=== PATIENT | female | born 1960 | race Caucasian/White ===

== ENCOUNTER 2017-04-20 22:02 | Emergency (ER) | payer OTHER ==
[~2017-04-20] VITALS: Ht 172.7 cm; Wt 104.3 kg
[2017-04-20] MEDS ORDERED: LEVOTHYROXINE150 MCG ORAL (22:13)
[2017-04-20] MEDS ORDERED: BP MEDS (22:14)
[2017-04-20] MEDS ORDERED: Dexamethasone 4mg/ml vial IVP ONE (22:30)
[2017-04-20] MEDS ORDERED: HYDROmorphone 1mg/ml Carpuject IVP ONE (22:30)
[2017-04-21] MEDS ORDERED: HYDROmorphone 1mg/ml Carpuject IVP ONE (00:30)
--- NOTE | 2017-04-21 00:34 | Emergency Room Report ---
History of Present Illness General Chief Complaint: Abdominal Pain Source: Patient Present Illness HPI Is a 57-year-old female with a history of severe degenerative disc disease of the lumbar spine. She said that she has severe discrimination mostly in L4-L5. She been through physical therapy and epidural is without any relief. She scheduled to see a specialist regarding surgery in a week or 2. She present with chief complaint of back pain but also pain to her right groin area. She also felt numbness to the whole leg. Hard time walking because of the pain. Worse with standing. No trauma. No fever chills but no nausea no vomiting. Pain is 10 out of 10 Allergies: Coded Allergies: No Known Allergies (Unverified , 04/20/17) Patient History Past Medical History: see triage record, old chart reviewed Past Surgical History: other Pertinent Family History: none Social History: Denies: smoking Now: No Immunizations: other Reviewed Nursing Documentation: PMH: Agreed, PSxH: Agreed Nursing Documentation-PMH Hx Hypertension: Yes Review of Systems Eye: Denies: blurred vision, eye pain ENT: Denies: ear pain, nose congestion, throat swelling Respiratory: Denies: cough, shortness of breath Cardiovascular: Denies: chest pain, palpitations Gastrointestinal: Reports: abdominal pain, Denies: diarrhea, nausea, vomiting Musculoskeletal: Reports: back pain, Denies: joint pain Skin: Denies: rash Neurological: Denies: headache, numbness Endocrine: Denies: increased thirst, increased urine Hematologic/Lymphatic: Denies: easy bruising All Other Systems: negative except mentioned in HPI Physical Exam Vital Signs Date Time Temp Pulse Resp B/P Pulse Ox O2 Delivery O2 Flow Rate FiO2 04/20/17 22:09 97.9 78 16 161/76 94 Room Air vitals with hypertension Sp02 EP Interpretation: reviewed, normal General Appearance: well appearing, no apparent distress, alert Head: normocephalic, atraumatic Eyes: bilateral eye EOMI, bilateral eye PERRL ENT: hearing grossly normal, normal pharynx Neck: full range of motion, supple, no meningismus Respiratory: chest non-tender, lungs clear, normal breath sounds Cardiovascular #1: regular rate, rhythm, no murmur Gastrointestinal: normal bowel sounds, non tender, no mass, no organomegaly, no bruit, non-distended Musculoskeletal: back normal - Diffuse lower back tenderness, normal range of motion Neurologic: alert, oriented x3 Psychiatric: mood/affect normal Skin: warm/dry Medical Decision Making Diagnostic Impression: Primary Impression: Degenerative disc disease, lumbar ER Course Patient presents with back pain and groin pain. This is secondary to severe degenerative disc disease. No evidence of cauda equina syndrome, spinal epidural abscess or neoplastic process. D-dimer is negative making DVT unlikely. She felt better after pain medication. Also started on steroid. She scheduled to see a specialist in early April. CT/MRI/US Diagnostic Results CT/MRI/US Diagnostic Results : Imaging Test Ordered: CT lumbar spine Impression Read by radiologist. severe degenerative disease. Last Vital Signs Date Time Temp Pulse Resp B/P Pulse Ox O2 Delivery O2 Flow Rate FiO2 04/20/17 22:09 97.9 78 16 161/76 94 Room Air Status: improved Disposition: HOME, SELF-CARE Condition: Stable Scripts Methylprednisolone (MEDROL) 4 Mg Tab.ds.pk 4 MG PO DAILY, #1 PACK Prov: SHANTA GOODMAN M.D. 04/21/17 Fentanyl 50MCG Patch* (DURAGESIC 50MCG*) 1 Each Patch.td72 1 PATCH TDERMAL EVERY 72 HOURS, #10 PATCH Prov: SHANTA GOODMAN M.D. 04/21/17 Referrals: [facility],REFERRING (PCP) Additional Instructions: Followup with your DrLise in 7 days. Return if symptom worsen. SHANTA GOODMAN M.D. Apr 21, 2017 00:34
[2017-04-21] MEDS ORDERED: MEDROL4 M1 PO (00:55)
[2017-04-21] MEDS ORDERED: DURAGESIC1 EAC1 TDERMAL (00:55)
[2017-04-21 01:06] VITALS: BP 126/49
--- NOTE | 2017-04-21 10:12 | Diagnostic Imaging Report ---
Indications: Back pain Technique: Spiral acquisitions obtained through the lumbar spine. Multiplanar reconstructions were generated. No IV contrast utilized. Total dose length product 1208 mGycm. CTDIvol(s) 32 mGy. Dose reduction achieved using automated exposure control Comparison: None Findings: Bony alignment is normal. Vertebral body heights are preserved. No acute fractures. No dislocations. There is generalized mild narrowing of the spinal canal in AP dimension due to short pedicles. At L1-2, posterior osteophytes, facet and ligamentum flavum hypertrophy result in mild narrowing of the spinal canal end of the bilateral neural foramina. There is degenerative disc narrowing, moderate, with vacuum formation as well as degenerative facet disease. At L2-3, there is mild degenerative disc narrowing with vacuum formation. There is circumferential annular bulge. This, in combination with short pedicles, facet and ligamentum flavum hypertrophy result in moderate narrowing of the spinal canal. There is mild left and moderate right neural foraminal stenosis. Right paracentral posterior osteophytes may impinge upon the right lateral recess. At L3-4, there is generalized circumferential annular bulge. This, in combination with short pedicles, facet and ligamentum flavum hypertrophy result and at least moderate narrowing of the spinal canal. There is moderate right, moderate to severe left neuroforaminal stenosis at this level. There is minimal narrowing of the disc. L4-5, there is circumferential annular bulge. This, in combination with ligament flavum hypertrophy results in moderate narrowing of the spinal canal. There is mild bilateral neural frontal stenosis. There is significant facet degeneration at this level. There is minimal narrowing of the disc At L5-S1, there is moderate to severe degenerative disc narrowing with considerable vacuum dictation. No significant disc bulge or protrusion or spinal stenosis. There is moderate to severe bilateral neural foraminal stenosis, predominantly due to facet hypertrophy. The included extraspinal soft tissues are unremarkable. Impression: Multilevel degenerative changes, as detailed on a level by level basis above. This results in multilevel spinal stenosis, or neural foraminal stenosis, and, at L2-3 possible impingement upon the right lateral recess No acute bony trauma This agrees with the preliminary interpretation provided overnight by [facility] teleradiology service. The CT scanner at [facility] is accredited by the [employer] and the scans are performed using protocols designed to limit radiation exposure to as low as reasonably achievable to attain images of sufficient resolution adequate for diagnostic evaluation.
[2017-04-22] MEDS ORDERED: FENTANYL1 EAC1 TOPIC (10:50)
== END 2017-04-21 01:05 | disposition home or self-care (01) ==
LOC: EDBD 22:02 → EMR 22:28
DX: M51.36 Other intervertebral disc degeneration, lumbar region (principal); R10.2 Pelvic and perineal pain; R20.0 Anesthesia of skin; I10 Essential (primary) hypertension
CPT/HCPCS: 36415; 72131; 85379; 96374; 96375; 99284; J1100; J1170; J2405

== ENCOUNTER 2017-06-30 14:20 | Emergency (ER) | payer OTHER ==
[~2017-06-30] VITALS: Ht 175.3 cm; Wt 104.3 kg
[~2017-06-30 14:20] MED LIST: BP MEDS; DURAGESIC1 EAC1 TDERMAL; FENTANYL1 EAC1 TOPIC; LEVOTHYROXINE150 MCG ORAL; MEDROL4 M1 PO
[2017-06-30] MEDS ORDERED: NORCO 10-325 T1 EACH ORAL (14:38)
[2017-06-30] MEDS ORDERED: Morphine Sulfate 10mg/ml Inj IM ONE (15:15)
--- NOTE | 2017-06-30 15:30 | Emergency Room Report ---
History of Present Illness General Chief Complaint: Lower Back Pain or Injury Source: Patient Present Illness HPI 57 YO Female presents to the ED c/o of new onset posterior calf and right knee pain, 10/10 in severity, since yesterday. pt. also reports right 5th digit pain and tenderness s/p stubbing her toe approx 2 days ago. pt. reports hx of multiple lumbar disk herniations, spinal stenosis, and a pinched right femoral nerve. pt. brought most recent MRI and EMG results from 6 weeks ago. Pt. presents today due to change in character with new posterior knee and calf pain. pt. reports that she feels a bulge behind the right knee. denies trauma or fall otherwise, denies erythema, leg swelling, fevers or chills. pt. also reports intermitted right flank pain with a constant dull ache which intermittently will have significant 10/10 in severity exacerbations lasting several minutes then resolving back to mild dull ache. denies hematuria, dysuria, frequency, or hx of stones. Reports hx of GERD. pt. denies Nausea, vomiting, diarrhea, or constipation. pt. denies skin color changes or temperature changes to the affected right lower extremity. denies recent spinal procedures. denies recent travel or estrogen medications. Denies blood in the stool or dark tarry stools. denies PMHx other than the previously reported complications from a fall 8 years ago. Pt reports intermittent paresthesias in the right LE. Denies loss of sensation or gross motor movements of the extremities, incontinence of bowel or bladder. Denies CP, Palpitations, LOC, AMS , dizziness, Changes in Vision, or a sudden severe headache. Allergies: Coded Allergies: No Known Allergies (Unverified , 04/20/17) Patient History Past Medical History: see triage record Past Surgical History: none Pertinent Family History: none Last Menstrual Period: POST Now: No Immunizations: UTD Reviewed Nursing Documentation: PMH: Agreed, PSxH: Agreed Nursing Documentation-PMH Past Medical History: No Stated History Hx Hypertension: Yes Review of Systems All Other Systems: negative except mentioned in HPI Physical Exam Vital Signs Date Time Temp Pulse Resp B/P (MAP) Pulse Ox O2 Delivery O2 Flow Rate FiO2 06/30/17 14:30 98.4 93 20 148/83 97 Room Air Sp02 EP Interpretation: reviewed, normal General Appearance: alert, GCS 15, non-toxic, moderate distress Head: normocephalic, atraumatic Eyes: bilateral eye normal inspection, bilateral eye PERRL ENT: hearing grossly normal, normal voice Neck: full range of motion, no bony tend Respiratory: lungs clear, normal breath sounds, speaking full sentences Cardiovascular #1: regular rate, rhythm, normal capillary refill Cardiovascular #2: 2+ dorsalis pedis (R) - post. tibialis pulse also intact and equal bilat. 2+, 2+ dorsalis pedis (L) Gastrointestinal: normal bowel sounds, soft, no guarding, no rebound, tenderness - mild RUQ TTP Rectal: deferred Genitourinary: normal inspection, no CVA tenderness Musculoskeletal: back normal, gait/station normal, normal range of motion, non- tender - lateral base of the right 5th toe, and posterior right knee, no anterior TTP, mild swelling to posterior knee noted, no pulsatile mass noted. , no calf tenderness Neurologic: alert, oriented x3, responsive, motor strength/tone normal, sensory intact, speech normal Psychiatric: judgement/insight normal, memory normal, mood/affect normal Skin: normal color, no rash, warm/dry, well hydrated Medical Decision Making PA Attestation Dr. Stevens is my supervising Physician whom patient management has been discussed with. Diagnostic Impression: Primary Impression: Contusion of foot, right Qualified Codes: S90.31XA - Contusion of right foot, initial encounter Additional Impressions: Right calf pain Posterior right knee pain Right flank pain Gastritis Qualified Codes: K29.60 - Other gastritis without bleeding Opiate dependence Qualified Codes: F11.20 - Opioid dependence, uncomplicated Chronic pain Qualified Codes: G89.29 - Other chronic pain Hx of gastroesophageal reflux (GERD) ER Course 57 YO Female presents to the ED c/o of new onset posterior calf and right knee pain, 10/10 in severity, since yesterday. pt. also reports right 5th digit pain and tenderness s/p stubbing her toe approx 2 days ago. pt. reports hx of multiple lumbar disk herniations, spinal stenosis, and a pinched right femoral nerve. pt. brought most recent MRI and EMG results from 6 weeks ago. Pt. presents today due to change in character with new posterior knee and calf pain. pt. reports that she feels a bulge behind the right knee. denies trauma or fall otherwise, denies erythema, leg swelling, fevers or chills. pt. also reports intermitted right flank pain with a constant dull ache which intermittently will have significant 10/10 in severity exacerbations lasting several minutes then resolving back to mild dull ache. denies hematuria, dysuria, frequency, or hx of stones. Reports hx of GERD. pt. denies Nausea, vomiting, diarrhea, or constipation. pt. denies skin color changes or temperature changes to the affected right lower extremity. denies recent spinal procedures. denies recent travel or estrogen medications. Denies blood in the stool or dark tarry stools. denies PMHx other than the previously reported complications from a fall 8 years ago. Pt reports intermittent paresthesias in the right LE. Denies loss of sensation or gross motor movements of the extremities, incontinence of bowel or bladder. Denies CP, Palpitations, LOC, AMS , dizziness, Changes in Vision, or a sudden severe headache.. Ddx considered but are not limited to Cellulitis, DVT, varicose vein, PAD, Venous insufficiency, fracture, contusion, popliteal artery pathology, bakers cyst , renal calculi, UTI , cholelithiasis just to name a few, mesenteric ischemia, opiate dependence.. Vital signs: are WNL, pt. is afebrile, non-Toxic in appearance. in mild distress secondary to pain. H&PE are most consistent with musculoskeletal injury, will r/o fracture with imaging, and DVT with duplex US. will also do basic abdominal lab work to r/o UTI, Stone, and gallbladder, appendicitis of low suspicion at this time. I do not suspect significant circulatory compromise to the right extremity at this time. ORDERS: -UA: WNL: Unremarkable - no evidence of infection or urinary tract irritation to suggest stone. -CMP: unremarkable -Lipase: WNL -CBC with Diff: Unremarkable -LE duplex U/s to R/O dvt. : Negative for DVT of the RLE, no swelling visualized behind the knee- Per technologist report - X-ray Right foot 3 views - negative for fx, Dislocation, or significant soft tissue injury, per official Radiology Report. ED INTERVENTIONS: - GI Cocktail -Zofran 4 mg PO - Pain control Pt. had return of dull ache 20 minutes after zofran, GI Cocktail was given after. - Pt. has opiate dependence. - D/w pt. 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 I do not suspect an emergent condition at this time. with current presentation pt. is stable for close outpatient follow up. D/w pt. to return to ED with worsening or new symptoms. DISCHARGE: At this time pt. is stable for d/c to home. Will provide printed patient care instructions, and any necessary prescriptions. Care plan and follow up instructions have been discussed with the patient prior to discharge. Labs Test 06/30/17 15:15 White Blood Count 9.5 K/UL (4.8-10.8) Red Blood Count 4.54 M/UL (4.20-5.40) Hemoglobin 15.1 G/DL (12.0-16.0) Hematocrit 45.0 % (37.0-47.0) Mean Corpuscular Volume 99 FL (80-99) Mean Corpuscular Hemoglobin 33.3 PG (27.0-31.0) Mean Corpuscular Hemoglobin Concent 33.7 G/DL (32.0-36.0) Red Cell Distribution Width 11.0 % (11.6-14.8) Platelet Count 290 K/UL (150-450) Mean Platelet Volume 8.2 FL (6.5-10.1) Neutrophils (%) (Auto) 54.6 % (45.0-75.0) Lymphocytes (%) (Auto) 35.9 % (20.0-45.0) Monocytes (%) (Auto) 6.8 % (1.0-10.0) Eosinophils (%) (Auto) 1.8 % (0.0-3.0) Basophils (%) (Auto) 1.0 % (0.0-2.0) Urine Color Pale yellow Urine Appearance Clear Urine pH 5 (4.5-8.0) Urine Specific [place] 1.020 (1.005-1.035) Urine Protein Negative (NEGATIVE) Urine Glucose (UA) Negative (NEGATIVE) Urine Ketones Negative (NEGATIVE) Urine Occult Blood Negative (NEGATIVE) Urine Nitrite Negative (NEGATIVE) Urine Bilirubin Negative (NEGATIVE) Urine Urobilinogen Normal MG/DL (0.0-1.0) Urine Leukocyte Esterase Negative (NEGATIVE) Sodium Level 139 mEQ/L (135-145) Potassium Level 3.9 mEQ/L (3.4-4.9) Chloride Level 103 mEQ/L (98-107) Carbon Dioxide Level 24 mEQ/L (20-30) Anion Gap 12 (5-15) Blood Urea Nitrogen 15 mg/dL (7-23) Creatinine 0.9 mg/dL (0.5-0.9) Estimat Glomerular Filtration Rate > 60 mL/min (>60) Glucose Level 93 mg/dL (74-106) Calcium Level 9.8 mg/dL (8.6-10.2) Total Bilirubin 0.4 mg/dL (0.0-1.2) Aspartate Amino Transf (AST/SGOT) 20 U/L (5-40) Alanine Aminotransferase (ALT/SGPT) 24 U/L (3-33) Alkaline Phosphatase 53 U/L (35-104) Total Protein 7.3 g/dL (6.6-8.7) Albumin 4.3 g/dL (3.5-5.2) Globulin 3.0 g/dL Albumin/Globulin Ratio 1.4 (1.0-2.7) Lipase 40 U/L (< 60) Last Vital Signs Date Time Temp Pulse Resp B/P (MAP) Pulse Ox O2 Delivery O2 Flow Rate FiO2 06/30/17 14:30 98.4 93 20 148/83 97 Room Air Disposition: HOME, SELF-CARE Condition: Stable Scripts Lidocaine (Lidocaine) 1 Each Adh..patch 700 MG TP Q12HR for 7 Days, #14 PATCH Prov: Jennifer Huerta 06/30/17 Magnesium Hydroxide/Al Hydrox (ROCIO-MOX ANTACID SUSPENSION) 355 Ml Oral.susp 10 ML PO BID, #355 ML Prov: Jennifer Huerta 06/30/17 Ranitidine Hcl* (ZANTAC*) 150 Mg Tablet 150 MG ORAL TWICE A DAY for 30 Days, #60 TAB Prov: Jennifer Huerta 06/30/17 Patient Instructions: Chronic Back Pain, Contusion, [id number], Food Choices for Peptic Ulcer Disease, Muscle Cramps and Spasms, [id number], Peptic Ulcer, [id number] Additional Instructions: Take medications as directed. Follow up with a Primary Care Provider in 3-5 days, even if your symptoms have resolved, for the following referrals: ---- GI SPECIALIST EVALUATION ---- SPINAL SPECIALIST / CHRONIC PAIN MANAGEMENT ---- NEUROLOGIST --Please review list of primary care clinics, if you do not already have a primary care provider Return sooner to ED if new symptoms occur, or current symptoms become worse. - Please note that this Emergency Department Report was dictated using [employer] detailer technology software, occasionally this can lead to erroneous entry secondary to interpretation by the dictation equipment. Jennifer Huerta Jun 30, 2017 15:30
--- NOTE | 2017-06-30 15:34 | Diagnostic Imaging Report ---
Indication: PAIN Technique: 3 views right foot Comparison: none Findings: No acute fractures. No dislocations. Joint spaces are preserved. There are small plantar and calcaneal spurs. Impression: No acute process
[2017-06-30 15:38] LABS: APPEARANCE,URINE CLEAR; KETONES,URINE NEGATIVE (NEGATIVE); LEUKOCYTE ESTERASE ,URINE NEGATIVE (NEGATIVE); NITRITE,URINE NEGATIVE (NEGATIVE); PH,URINE 5 (4.5-8.0); PROTEIN,URINE NEGATIVE (NEGATIVE); UROBILINOGEN,URINE NORMAL MG/DL (0.0-1.0)
[2017-06-30 15:40] LABS: EOSINOPHILS % (AUTO) 1.8 % (0.0-3.0); LYMPHOCYTES % (AUTO) 35.9 % (20.0-45.0); MEAN CORPUSCULAR HEMOGLOBIN 33.3 PG (27.0-31.0); MEAN CORPUSCULAR HGB CONC 33.7 G/DL (32.0-36.0); MEAN CORPUSCULAR VOLUME 99 FL (80-99); MEAN PLATELET VOLUME 8.2 FL (6.5-10.1); MONOCYTES % (AUTO) 6.8 % (1.0-10.0); NEUTROPHILS % (AUTO) 54.6 % (45.0-75.0); PLATELET COUNT 290 K/UL (150-450); RED BLOOD COUNT 4.54 M/UL (4.20-5.40); WHITE BLOOD COUNT 9.5 K/UL (4.8-10.8)
[2017-06-30 15:42] VITALS: BP 148/83
[2017-06-30 15:48] LABS: ALANINE AMINOTRANSFERASE 24 U/L (3-33); ALBUMIN/GLOBULIN RATIO 1.4 (1.0-2.7); ANION GAP 12 (5-15); ASPARTATE AMINO TRANSFERASE 20 U/L (5-40); CALCIUM 9.8 mg/dL (8.6-10.2); CARBON DIOXIDE 24 mEQ/L (20-30); CHLORIDE 103 mEQ/L (98-107); CREATININE 0.9 mg/dL (0.5-0.9); GLOMERULAR FILTRATION RATE > 60 mL/min (>60); HEMOLYSIS 7; LIPASE 40 U/L (< 60); POTASSIUM 3.9 mEQ/L (3.4-4.9); SODIUM 139 mEQ/L (135-145); TOTAL PROTEIN 7.3 g/dL (6.6-8.7)
[2017-06-30] MEDS ORDERED: Mylanta II UD 30ml ORAL ONE (16:00)
[2017-06-30] MEDS ORDERED: Lidocaine 2% Visc 15ml soln ORAL ONE (16:00)
[2017-06-30 16:10] VITALS: BP 136/78
[2017-06-30] MEDS ORDERED: GERI-MOX ANTAC355 ML PO (16:24)
[2017-06-30] MEDS ORDERED: ZANTAC150 MG ORAL (16:24)
[2017-06-30] MEDS ORDERED: LIDOCAINE700 M1 TP (16:24)
[2017-06-30 16:48] VITALS: BP 136/78
--- NOTE | 2017-07-01 14:42 | Diagnostic Imaging Report ---
APPROVED REPORT CPT Code: 22152 Present Symptoms Lower Extremity Pain: Right RIGHT LEG: Venous imaging reveals a patent deep venous system. There is no evidence of thrombus within the femoral, popliteal or tibial segments. The greater saphenous vein is also within normal limits. Doppler indicates normal spontaneous flow within these segments.
== END 2017-06-30 16:49 | disposition home or self-care (01) ==
LOC: EMR 15:09
DX: S90.31XA Contusion of right foot, initial encounter (principal); X58.XXXA Exposure to other specified factors, initial encounter; Y93.9 Activity, unspecified; Y99.9 Unspecified external cause status; M79.661 Pain in right lower leg; M25.561 Pain in right knee; K29.70 Gastritis, unspecified, without bleeding; G89.29 Other chronic pain; F11.20 Opioid dependence, uncomplicated; K21.9 Gastro-esophageal reflux disease without esophagitis; I10 Essential (primary) hypertension
CPT/HCPCS: 36415; 73630; 80053; 81003; 83690; 85025; 93971; 96360; 96372; 99284; J2270

== ENCOUNTER 2018-03-12 20:44 | Emergency (ER) | payer MEDICAID, OTHER ==
[~2018-03-12] VITALS: Ht 172.7 cm; Wt 104.3 kg
[~2018-03-12 20:44] MED LIST changes: +GERI-MOX ANTAC355 ML PO; +LIDOCAINE700 M1 TP; +NORCO 10-325 T1 EACH ORAL; +ZANTAC150 MG ORAL
[2018-03-12] MEDS ORDERED: Sodium Chloride 500ML 500 ML IV ONE (21:16)
[2018-03-12] MEDS ORDERED: Isovue-300 100ml vial INJ PRN (21:30)
[2018-03-12] MEDS ORDERED: Morphine Sulfate 4mg/ml Inj IVP ONE ×2 (21:30→23:45)
[2018-03-12] MEDS ORDERED: Ketorolac 30mg Inj IV ONE (21:30)
[2018-03-12 21:41] LABS: APPEARANCE,URINE CLEAR; BILIRUBIN, URINE NEGATIVE (NEGATIVE); COLOR,URINE PALE YELLOW; GLUCOSE, URINE (UA) NEGATIVE (NEGATIVE); KETONES,URINE NEGATIVE (NEGATIVE); LEUKOCYTE ESTERASE ,URINE NEGATIVE (NEGATIVE); NITRITE,URINE NEGATIVE (NEGATIVE); PH,URINE 7 (4.5-8.0); PROTEIN,URINE NEGATIVE (NEGATIVE); UROBILINOGEN,URINE NORMAL MG/DL (0.0-1.0)
[2018-03-12 21:43] LABS: BASOPHILS % (AUTO) 1.3 % (0.0-2.0); EOSINOPHILS % (AUTO) 2.5 % (0.0-3.0); HEMATOCRIT 41.1 % (37.0-47.0); HEMOGLOBIN 14.4 G/DL (12.0-16.0); LYMPHOCYTES % (AUTO) 43.1 % (20.0-45.0); MEAN CORPUSCULAR VOLUME 92 FL (80-99); MONOCYTES % (AUTO) 8.7 % (1.0-10.0); NEUTROPHILS % (AUTO) 44.5 % (45.0-75.0); PLATELET COUNT 269 K/UL (150-450); RED BLOOD COUNT 4.44 M/UL (4.20-5.40); RED CELL DISTRIBUTION WIDTH 11.3 % (11.6-14.8); WHITE BLOOD COUNT 9.5 K/UL (4.8-10.8)
[2018-03-12 21:50] LABS: ANION GAP 8 mmol/L (5-15); BLOOD UREA NITROGEN 17 mg/dL (7-18); CALCIUM 9.1 MG/DL (8.5-10.1); CARBON DIOXIDE 26 MMOL/L (21-32); CHLORIDE 104 MMOL/L (98-107); POTASSIUM 3.8 MMOL/L (3.5-5.1); SODIUM 138 MMOL/L (136-145)
[2018-03-12 21:54] LABS: ALANINE AMINOTRANSFERASE 24 U/L (12-78); ALBUMIN 3.7 G/DL (3.4-5.0); ALKALINE PHOSPHATASE 74 U/L (46-116); ASPARTATE AMINO TRANSFERASE 9 U/L (15-37); BILIRUBIN,TOTAL 0.2 MG/DL (0.2-1.0)
--- NOTE | 2018-03-12 22:21 | Emergency Room Report ---
History of Present Illness General Chief Complaint: Lower Back Pain or Injury Source: Patient, Medical Record Present Illness HPI 58-year-old lower back/abdominal pain. Started one week ago. Notes pain to her right radiating to her right lower abdomen. Pain is sharp, 10 out of 10. No aggravating or relieving factors. Patient also complaining of back pain but states this is chronic. Patient has history of chronic back pain and had laminectomy done in the last year. Patient has residual weakness down her right leg which is not new. Denies fevers or chills. Denies nausea or vomiting. No other aggravating relieving factors. Denies any other associated symptoms Allergies: Coded Allergies: No Known Allergies (Unverified , 04/20/17) Patient History Past Medical History: HTN Past Surgical History: other - laminectomy Pertinent Family History: none Social History: Denies: smoking, alcohol use, drug use Now: No Immunizations: UTD Reviewed Nursing Documentation: PMH: Agreed; PSxH: Agreed Nursing Documentation-PMH Past Medical History: No History, Except For Hx Hypertension: Yes Hx Neurological Problems: Yes - L3, L4, S1 spine surgery 2016. Review of Systems All Other Systems: negative except mentioned in HPI Physical Exam Vital Signs Date Time Temp Pulse Resp B/P (MAP) Pulse Ox O2 Delivery O2 Flow Rate FiO2 03/12/ 20:50 98.1 87 17 122/65 97 Room Air 98.1 Sp02 EP Interpretation: reviewed, normal General Appearance: no apparent distress, alert, GCS 15, non-toxic, obese Head: normocephalic, atraumatic Eyes: bilateral eye normal inspection, bilateral eye PERRL ENT: hearing grossly normal, normal pharynx, no angioedema, normal voice Neck: full range of motion, supple/symm/no masses Respiratory: chest non-tender, lungs clear, normal breath sounds, speaking full sentences Cardiovascular #1: regular rate, rhythm, no edema Cardiovascular #2: 2+ carotid (R), 2+ carotid (L), 2+ radial (R), 2+ radial (L) , 2+ dorsalis pedis (R), 2+ dorsalis pedis (L) Gastrointestinal: normal bowel sounds, soft, non-distended, no guarding, no rebound, tenderness - RLQ Rectal: deferred Genitourinary: normal inspection, no CVA tenderness Musculoskeletal: gait/station normal, normal range of motion, other - pain to R buttock Neurologic: alert, oriented x3, responsive, motor strength/tone normal, sensory intact, speech normal Psychiatric: judgement/insight normal, memory normal, mood/affect normal, no suicidal/homicidal ideation Reflexes: 3+ bicep (R), 3+ bicep (L), 3+ tricep (R), 3+ tricep (L), 3+ knee (R) , 3+ knee (L) Skin: normal color, no rash, warm/dry, well hydrated Lymphatic: no adenopathy Medical Decision Making Diagnostic Impression: Primary Impression: Abdominal pain Qualified Codes: R10.31 - Right lower quadrant pain Additional Impressions: Chronic pain Qualified Codes: G89.29 - Other chronic pain Opiate dependence Qualified Codes: F11.20 - Opioid dependence, uncomplicated ER Course Hospital Course 58-year-old F presents to ED with RLQ pain, back pain. h/o laminectomy Differential diagnosis includes-appendicitis, cholecystitis, small bowel obstruction, gastritis, Clinical course Patient placed on stretcher. After initial history and physical I ordered labs , IV fluids, pain medications and CT scan Labs - no leukocytosis, electrolytes ok, LFTs normal, UA unremarkable CT scan shows no acute pathology I discussed findings with the patient. Given negative workup the pain is likely still radiating from her back. I reviewed CURES and patient does have extensive monthly narcotic prescriptions filled. I explained I cannot provide her with additional pain medications at this time. Patient understands and will follow up with her PMD I feel this is a highly complex case requiring extensive working including EKG/ Rhythm strip, Xray/CT/US, Blood/urine lab work, repeat exams while in ED, and administration of strong opiates/narcotics for pain control, admission to hospital or close patient follow up. Diagnosis - abdominal pain, chronic pain, opiate dependence Stable and discharged to home. Followup with PMD. Return to ED if symptoms recur or worsen Labs Test 03/12/18 21:25 White Blood Count 9.5 K/UL (4.8-10.8) Red Blood Count 4.44 M/UL (4.20-5.40) Hemoglobin 14.4 G/DL (12.0-16.0) Hematocrit 41.1 % (37.0-47.0) Mean Corpuscular Volume 92 FL (80-99) Mean Corpuscular Hemoglobin 32.4 PG (27.0-31.0) Mean Corpuscular Hemoglobin Concent 35.0 G/DL (32.0-36.0) Red Cell Distribution Width 11.3 % (11.6-14.8) Platelet Count 269 K/UL (150-450) Mean Platelet Volume 8.0 FL (6.5-10.1) Neutrophils (%) (Auto) 44.5 % (45.0-75.0) Lymphocytes (%) (Auto) 43.1 % (20.0-45.0) Monocytes (%) (Auto) 8.7 % (1.0-10.0) Eosinophils (%) (Auto) 2.5 % (0.0-3.0) Basophils (%) (Auto) 1.3 % (0.0-2.0) Urine Color Pale yellow Urine Appearance Clear Urine pH 7 (4.5-8.0) Urine Specific [place] 1.015 (1.005-1.035) Urine Protein Negative (NEGATIVE) Urine Glucose (UA) Negative (NEGATIVE) Urine Ketones Negative (NEGATIVE) Urine Occult Blood Negative (NEGATIVE) Urine Nitrite Negative (NEGATIVE) Urine Bilirubin Negative (NEGATIVE) Urine Urobilinogen Normal MG/DL (0.0-1.0) Urine Leukocyte Esterase Negative (NEGATIVE) Sodium Level 138 MMOL/L (136-145) Potassium Level 3.8 MMOL/L (3.5-5.1) Chloride Level 104 MMOL/L (98-107) Carbon Dioxide Level 26 MMOL/L (21-32) Anion Gap 8 mmol/L (5-15) Blood Urea Nitrogen 17 mg/dL (7-18) Creatinine 1.0 MG/DL (0.55-1.30) Estimat Glomerular Filtration Rate 57.1 mL/min (>60) Glucose Level 111 MG/DL (74-106) Calcium Level 9.1 MG/DL (8.5-10.1) Total Bilirubin 0.2 MG/DL (0.2-1.0) Aspartate Amino Transf (AST/SGOT) 9 U/L (15-37) Alanine Aminotransferase (ALT/SGPT) 24 U/L (12-78) Alkaline Phosphatase 74 U/L (46-116) Total Protein 7.4 G/DL (6.4-8.2) Albumin 3.7 G/DL (3.4-5.0) Globulin 3.7 g/dL Albumin/Globulin Ratio 1.0 (1.0-2.7) Lipase 183 U/L (73-393) CT/MRI/US Diagnostic Results CT/MRI/US Diagnostic Results : Imaging Test Ordered: CT A/P Impression No acute process Last Vital Signs Date Time Temp Pulse Resp B/P (MAP) Pulse Ox O2 Delivery O2 Flow Rate FiO2 03/12/18 21:42 98.1 03/12/18 20:50 87 17 122/65 97 Room Air Status: improved Disposition: HOME, SELF-CARE Condition: Stable Referrals: NON PHYSICIAN (PCP) Vivek Estrada MD March 12, 2018 22:20
--- NOTE | 2018-03-12 23:25 | Diagnostic Imaging Report ---
EXAM: CT Abdomen and Pelvis With Intravenous Contrast CLINICAL HISTORY: ABD PAIN TECHNIQUE: Axial computed tomography images of the abdomen and pelvis with intravenous contrast. Dosage information not provided. One or more of the following dose reduction techniques were used: automated exposure control, adjustment of the mA and/or kV according to patient size, use of iterative reconstruction technique. COMPARISON: No relevant prior studies available. FINDINGS: Lung bases: Unremarkable. No mass. No consolidation. ABDOMEN: Liver: Unremarkable. No mass. Gallbladder and bile ducts: Cholecystectomy. No ductal dilation. Pancreas: Unremarkable. No mass. No ductal dilation. Spleen: Unremarkable. No splenomegaly. Adrenals: Unremarkable. No mass. Kidneys and ureters: Unremarkable. No solid mass. No hydronephrosis. Stomach and bowel: Unremarkable. No obstruction. No mucosal thickening. PELVIS: Appendix: No findings to suggest acute appendicitis. Bladder: Unremarkable. No mass. Reproductive: Unremarkable as visualized. ABDOMEN and PELVIS: Intraperitoneal space: Unremarkable. No free air. No significant fluid collection. Bones/joints: No acute fracture. No dislocation. Soft tissues: Unremarkable. Vasculature: Unremarkable. No abdominal aortic aneurysm. Lymph nodes: Unremarkable. No enlarged lymph nodes. IMPRESSION: No acute findings.
[2018-03-12 23:40] VITALS: BP 135/74
== END 2018-03-12 23:43 | disposition home or self-care (01) ==
LOC: EMR 22:13
DX: R10.31 Right lower quadrant pain (principal); G89.29 Other chronic pain; M54.5 Low back pain; F11.20 Opioid dependence, uncomplicated; I10 Essential (primary) hypertension; Z98.890 Other specified postprocedural states
CPT/HCPCS: 36415; 74177; 80053; 81003; 83690; 85025; 96374; 96375; 99284; J1885; J2270; J7040; Q9967